=== PATIENT | female | born 1970 | race Caucasian/White ===

== ENCOUNTER → 2017-11-24 13:58 | Outpatient (CLI) | payer OTHER, SELFPAY ==
[2017-11-24 16:03] LABS: Cancer Antigen 125 18 U/mL (0-35)
[2017-11-30 06:08] LABS: Human HE4 Antigen 46 pmol/L
== END ==
PROVIDERS: PCP Family Medicine; Visit Provider Specialist
DX: N83.292 Other ovarian cyst, left side (principal); N83.291 Other ovarian cyst, right side
CPT/HCPCS: 36415; 86304; 86305